=== PATIENT | male | born 1965 | race Caucasian/White ===

== ENCOUNTER 2023-12-01 09:41 | Emergency (ER) | payer OTHER, SELFPAY ==
[2023-12-01 09:45] VITALS: BP 166/95; PULSE 80; TEMP 36.7; O2SAT 97; BMI 25.7
[2023-12-01] MEDS: LIDOCAINE HCL 1% 100 MG/10 ML MDV INJ (10:10)
--- NOTE | 2023-12-01 11:21 | ED.SKABFB1 ---
HPI - Skin/Abscess/Foreign Bdy General Chief complaint: Skin/Abscess/Foreign Body Stated complaint: UPPER EXTREMITY INJURY, LEFT Time Seen by Provider: 12/01/23 09:50 Source: patient Mode of arrival: walk-in History of Present Illness HPI narrative: The patient presented to the ER with a left thumb laceration that he sustained while opening a box at home with a sample box maker that is new not lauryn. The patient mentioned that his last tetanus booster was within the last 5 years He had no other injuries Related Data Allergies Allergy/AdvReac Type Severity Reaction Status Date / Time No Known Drug Allergies Allergy Verified 12/01/23 09:49 Review of Systems ROS Status of ROS 10 or more systems reviewed and unremarkable except as noted in history and below PFSH PFSH Social History Little interest or pleasure in doing things: not at all Feeling down, depressed, or hopeless: not at all Exam Narrative Exam Narrative: Nurses notes and vital signs reviewed and patient is not hypoxic. Left hand examination: The patient have sustained 1 laceration just distal to the proximal interphalangeal joint of the first finger on the dorsum of the thumb. Laceration is clean and is linear measures 2 cm no foreign body and no exposure of the underlying structure and the patient have full range of movement General: Well-appearing and in no apparent distress. Skin: Warm, dry, no pallor noted. No rash. Head: Normocephalic, atraumatic. Neck: Supple, non-tender. Eye: Pupils are equal, round and EOMI. No scleral icterus. Ears, Nose, Mouth, and Throat: TM are clear, no nasal mucosal hypertrophy. Oral mucosa is moist, no posterior oropharynx erythema, uvula is mid-line Cardiovascular: Regular Rate and Rhythm without murmur, gallop or rub. Respiratory: No accessory muscle use or respiratory distress. Lungs are clear to auscultation, no wheezing, rales or rhonchi Chest Wall: no tenderness Back: No midline thoracic or lumbar vertebral tenderness. No CVA tenderness Musculoskeletal: normal ROM, no calf or popliteal tenderness, no lower extremity edema/swelling GI: Abdomen is soft, non-distended. Normal bowel sounds. No masses appreciated. No tenderness to palpation. No rebound, guarding, or rigidity noted. Neurological: A&O x4. No cranial nerve dysfunction observed. No truncal ataxia. Moves all extremities. Sensation intact. Psychiatric: Cooperative and interactive. Normal mood and affect. Constitutional Vital Signs, click to edit/add: Last Vital Signs Temp 98.1 F 12/01/23 09:45 Pulse 80 12/01/23 09:45 Resp 16 12/01/23 09:45 BP 166/95 H 12/01/23 09:45 Pulse Ox 97 12/01/23 09:45 O2 Del Method Room Air 12/01/23 09:45 Course Vital Signs Vital signs: Vital Signs Temperature 98.1 F 12/01/23 09:45 Pulse Rate 80 12/01/23 09:45 Respiratory Rate 16 12/01/23 09:45 Blood Pressure 166/95 H 12/01/23 09:45 Pulse Oximetry 97 12/01/23 09:45 Oxygen Delivery Method Room Air 12/01/23 09:45 Temperature 98.1 F 12/01/23 09:45 Pulse Rate 80 12/01/23 09:45 Respiratory Rate 16 12/01/23 09:45 Blood Pressure 166/95 H 12/01/23 09:45 Pulse Oximetry 97 12/01/23 09:45 Oxygen Delivery Method Room Air 12/01/23 09:45 MDM - Skin/Abscess/Foreign Bdy MDM Narrative Medical decision making narrative: After cleaning the laceration with the normal saline and Betadine the patient had the area infiltrated with 1% lidocaine almost 5 cc The patient then had 5 3-O nylon stitches interrupted The patient to keep the wound clean and dry for the next 5 to 7 days The patient is to follow up with primary care physician in next 2-3 days or to return to the emergency department should any of the signs or symptoms worsen or new symptoms develop. The patient agrees with the following Diagnosis and Treatment plan and the patient will be discharged home. Discharge Plan Discharge Chief Complaint: Skin/Abscess/Foreign Body Clinical Impression: Laceration of finger Patient Disposition: Home, Self-Care Time of Disposition Decision: 11:13 Condition: Good Print Language: [place]anian Instructions: Care For Your Stitches (DC), Finger Laceration (ED) Referrals: Valerie Casillas NP [Primary Care Provider] - 1 week
== END 2023-12-01 11:52 | disposition home or self-care (01) ==
PROVIDERS: Emergency Provider Emergency Medicine; PCP Nurse Practitioner
DX: S61.012A Laceration without foreign body of left thumb without damage to nail, initial encounter (principal); W26.0XXA Contact with knife, initial encounter
CPT/HCPCS: 12001; 99284